=== PATIENT | male | born 1985 | race Caucasian/White ===

== ENCOUNTER 2020-01-19 19:12 | Emergency (ER) | payer OTHER ==
[2020-01-19] MEDS ORDERED: Ondansetron ODT 4 MG TAB ONE (20:13)
--- NOTE | 2020-01-19 20:44 | RAD ---
CHEST ONE VIEW ABDOMEN TWO VIEWS: 01/19/20 HISTORY: Abdominal pain, nausea and vomiting. FINDINGS/IMPRESSION: The heart size is normal. The lungs are clear. No free air or differential fluid levels are seen. The bowel gas pattern is unremarkable. No suspicious calcifications are identified. There is fecal mater ial in the right colon. POS: [facility]
[2020-01-19] MEDS ORDERED: Lidocaine Viscous Sol 2% 15 ml UD Cup ONE (20:51)
[2020-01-19] MEDS ORDERED: Mag-Al Plus 1200 MG/1200 MG/120 MG/30 ML UDCUP ONE (20:51)
== END 2020-01-19 21:03 | disposition home or self-care (01) ==
LOC: MADERS 19:12
DX: T18.128A Food in esophagus causing other injury, initial encounter (principal); K21.9 Gastro-esophageal reflux disease without esophagitis
CPT/HCPCS: 74022; Q0162